=== PATIENT | male | born 1980 | race Caucasian/White ===

== ENCOUNTER 2016-12-29 07:10 | Emergency (ER) | payer SELFPAY ==
[2016-12-29 07:29] VITALS: BP 112/74; BMI 25.2
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
--- NOTE | 2016-12-29 08:45 | RAD ---
PA and lateral Chest Indication: Neck pain with right arm radiculopathy Comparison: None available Findings: The trachea is midline. The cardiac silhouette is unremarkable. The lungs are clear without focal infiltrate or effusion. The bony thorax is unremarkable. IMPRESSION: 1. No acute cardiopulmonary abnormality. Reported By:
--- NOTE | 2016-12-29 08:50 | RAD ---
HISTORY: Neck pain Study: Cervical spine five view Comparison: None Findings: The prevertebral soft tissues are normal. The alignment is normal. The vertebral bodies are of avera ge height. The disc heights are preserved with the exception of mild narrowing at C5-6. The posterio r elements are intact. The neural foramina are patent. Mild facet arthropathy is present bilaterally . IMPRESSION: Mild disc space narrowing C5-6 Mild facet degenerative joint disease Reported By:
== END 2016-12-29 09:02 | disposition home or self-care (01) ==
LOC: ER 07:10
DX: M47.22 Other spondylosis with radiculopathy, cervical region (principal)
CPT/HCPCS: 71020; 72050; 99282; 99283